=== PATIENT | female | born 1935 | race Asian ===

== ENCOUNTER 2018-06-05 11:47 | Inpatient (IN) | payer MEDICARE ==
[2018-06-05] MEDS ORDERED: NACL 0.9% 1000 ML 1,000 ML IV ONE (12:21)
[2018-06-05] MEDS ORDERED: PEPCID IV ONE (12:21)
[2018-06-05] MEDS ORDERED: ZOFRAN IV ONE (12:21)
--- NOTE | 2018-06-05 12:21 | Emergency Department Report ---
Blank Doc - Documentation Documentation: Patient is a 82-year-old black female who is being brought in by daughter because of several episodes of nausea vomiting and epigastric discomfort. Patient states she would not consider when she has to be pain. Patient states her last thing she ate was [facility] a [facility] she had a salad and orange. Patient states she's been having some nausea since. She denies any diarrhea fever chills chest pain cough cold congestion at this time. On focused physical exam the patient has no abdominal pain at this time. Patient is tachycardic. Patient removed to a treatment room for IV fluids as well as Zofran and Pepcid. After studies will be checked checked as well as a x-ray of the abdomen.
[2018-06-05 12:38] LABS: Bacteria,Urine 1+ /HPF (Negative); Bilirubin,Urine NEG (Negative); Blood,Urine SM (Negative); Color,Urine Yellow (Yellow); Mucus,Urine FEW /HPF; Urobilinogen,Urine < 2.0 mg/dL (<2.0)
[2018-06-05 12:46] LABS: Basophils # (Auto) 0.1 K/mm3 (0.0-0.1); Basophils % (Auto) 0.6 % (0.0-1.8); Eosinophils % (Auto) 0.1 % (0.0-4.3); Hematocrit 47.5 % (30.3-42.9); Hemoglobin 15.7 gm/dl (10.1-14.3); Lymphocytes % (Auto) 9.3 % (13.4-35.0); Mean Corpuscular HGB Conc 33 % (30-34); Mean Corpuscular Hemoglobin 29 pg (28-32); Mean Corpuscular Volume 88 fl (79-97); Monocytes # (Auto) 0.5 K/mm3 (0.0-0.8); Platelet Count 318 K/mm3 (140-440); Red Blood Count 5.42 M/mm3 (3.65-5.03); Red Cell Distribution Width 14.2 % (13.2-15.2)
[2018-06-05 13:03] LABS: Alanine Aminotransferase 11 units/L (7-56); Albumin 4.4 g/dL (3.9-5); BUN/Creatinine Ratio 18; Blood Urea Nitrogen 14 mg/dL (7-17); Calcium 9.8 mg/dL (8.4-10.2); Hemolysis Index 27; Lipase 19 units/L (13-60)
--- NOTE | 2018-06-05 13:47 | XRay Report ---
ABDOMINAL SERIES: History: Nausea and vomiting, epigastric pain. No comparison. Multiple dilated loops of small bowel with air-fluid levels are identified in the upper abdomen. No evidence for free air or pathologic calcifications. There is a normal gas and stool in the colon. Multiple surgical clips are noted in the pelvis, correlate with history. Single view of the chest demonstrates mild atelectatic changes at the right lung base. Otherwise, the lungs are clear. Normal heart size. IMPRESSION: Findings consistent with a partial small bowel obstruction.
[2018-06-05] MEDS ORDERED: NACL 0.9% 100 ML ONE (16:04)
--- NOTE | 2018-06-05 17:11 | Emergency Department Report ---
Vomiting/Diarrhea <CUAUHTEMOC LOPEZ - Last Filed: 06/05/18 20:04> - HPI Duration: 3 Days Severity: moderate Nausea/Vomiting Severity: Moderate Diarrhea Severity: Mild Pain Severity: None Symptoms: Yes Able to Tolerate Fluids, No Watery Diarrhea, No Bloody diarrhea, No Fever, No Recent Unusual Foods, No Recent Untreated Water, No Recent use of Antibiotics, No Family w/ Similar Symptoms, No Contacts w/ Similar Symptoms, No Rash, No Hematuria, No Recent URI Symptoms Other History: This is a 82-year-old -[place] female who presents with nausea and vomiting for 3 days. Past medical history of hypertension and ileostomy. Patient's daughter is at bed side and states surgeon informed family patient may have occasional diarrhea, nausea or vomiting, and bowel obstruction due to scarring from surgery. Patient has frequent nausea and vomiting with diarrhea. Patient denies pain and states diarrhea has resolved. Patient states she is afraid to eat anything over the past 2 days because she did not want to cause vomiting. They are also concerned of possible urinary tract infection. Patient denies abdominal pain, chest pain, fever, chills, cough, and congestion. <BYRON GOMEZ - Last Filed: 06/07/18 07:48> - HPI Chief Complaint: Nausea/Vomiting/Diarrhea Stated Complaint: VOMIT/DEHYRATED Time Seen by Provider: 06/05/18 12:15 ED Review of Systems ROS: Stated complaint: VOMIT/DEHYRATED Other details as noted in HPI <CUAUHTEMOC LOPEZ - Last Filed: 06/05/18 20:04> ROS: Stated complaint: VOMIT/DEHYRATED Other details as noted in HPI Constitutional: denies: chills, fever Respiratory: denies: cough, shortness of breath, wheezing Cardiovascular: denies: chest pain, palpitations Gastrointestinal: nausea, vomiting, diarrhea. denies: abdominal pain Neurological: denies: headache, weakness, paresthesias Psychiatric: denies: anxiety, depression <BYRON GOMEZ - Last Filed: 06/07/18 07:48> ED Past Medical Hx <CUAUHTEMOC LOPEZ - Last Filed: 06/05/18 20:04> - Past Medical History Hx Hypertension: Yes Hx of Cancer: Yes - Surgical History Past Surgical History?: Yes <BYRON GOMEZ - Last Filed: 06/07/18 07:48> - Medications Home Medications: Home Medications Medication Instructions Recorded Confirmed Last Taken Type Lisinopril [Prinivil] 5 mg PO DAILY PRN 06/05/18 06/05/18 Unknown History Mirtazapine 7.5 mg PO ONCE 06/06/18 06/06/18 Unknown History Promethazine [Phenergan TAB] 25 mg PO Q6HR PRN 06/06/18 06/06/18 06/04/18 10:00 History Tramadol HCl [Ultram] 50 mg PO ONCE PRN 06/06/18 06/06/18 Unknown History Vomiting Diarrhea Exam - Exam General: Vital signs noted. No distress. Alert and acting appropriately. Neurologic: Alert and oriented, no deficits. Musculoskeletal: Unremarkable. <JESSICAVALERIE' Tricia - Last Filed: 06/05/18 20:04> - Exam General: Vital signs noted. No distress. Alert and acting appropriately. HEENT: Yes Moist Mucous Membranes, No Pharyngeal Erythema, No Pharyngeal Exudates, No Rhinorrhea, No Conjuctival Injection, No Frontal Tenderness, No Maxillary Tenderness Neck: No Adenopathy, No Rigidity Lungs: Yes Clear Lung Sounds, Yes Good Air Exchange, No Wheezes, No Stridor, No Cough, No Nasal Flaring, No Retractions, No Use of Accessory Muscles Heart exam: Regular: Yes, Murmur: No, Tachycardia: No Abdomen: Tenderness: No, Peritoneal Signs: No, Distention: No, Hyperactive Bowel sounds: No Skin exam: Rash: No, Edema: No, Normal turgor: Yes Neurologic: Alert and oriented, no deficits. Musculoskeletal: Unremarkable. <BYRON GOMEZ - Last Filed: 06/07/18 07:48> ED Course Vital Signs 06/05/18 06/05/18 06/05/18 11:58 12:46 15:43 Temperature 99.9 F H Pulse Rate 122 H 123 H Respiratory 16 18 Rate Blood Pressure 135/87 136/87 O2 Sat by Pulse 96 99 96 Oximetry <LULULindyCUAUHTEMOC - Last Filed: 06/05/18 20:04> Vital Signs 06/05/18 06/05/18 06/05/18 11:58 12:46 15:43 Temperature 99.9 F H Pulse Rate 122 H 123 H Respiratory 16 18 Rate Blood Pressure 135/87 136/87 O2 Sat by Pulse 96 99 96 Oximetry <BYRON GOMEZ - Last Filed: 06/07/18 07:48> ED Medical Decision Making - Lab Data Result diagrams: 06/05/18 12:26 06/05/18 12:31 - Radiology Data FINAL REPORT EXAM: CT ABDOMEN PELVIS WO/W CON HISTORY: n/v, partial SBO on xray TECHNIQUE: Following oral administration of GI contrast axial helical imaging was performed through the abdomen and pelvis with sagittal and coronal reformatted images obtained. Comparison: None FINDINGS: There is pulmonary consolidation in both lung bases with volume loss. Probable atelectasis. The liver, spleen, pancreas and adrenal glands are unremarkable in appearance. There are hypodensities in both kidneys. Probable cyst. There is no evidence of hydronephrosis. A small amount of contrast is demonstrated in the kidneys bilaterally. There is marked distention of the stomach and [id number] distention of the proximal small bowel (4.9 centimeters) with air-fluid levels. There is a transition in the caliber of the small bowel in the region of the proximal ileum. The caliber of the small bowel distal to the transition measures approximately 1.4 centimeters. The colon is normal caliber to decompressed and contains stool. There is an enterostomy in the right anterior pelvic wall. There is a fluid collection in the subcutaneous fat in the region the enterostomy. There is a small amount of free fluid in the abdomen. There is no evidence of pneumoperitoneum. There is no definite evidence of bowel wall thickening at this time. Surgical clips are demonstrated in the pelvic sidewall bilaterally with the appearance of a bowel anastomosis in the right pelvis. The abdominal aorta is normal caliber. The urinary bladder is decompressed. The uterus is absent. The bony structures are notable for spondylitic change of the lumbar spine. IMPRESSION: 1. Evidence of high-grade small bowel obstruction in the region of the proximal ileum. 2. Small amount of free fluid in the abdomen. 3. Enterostomy right anterior pelvic wall with a fluid collection in the subcutaneous fat in the region the enterostomy. 4. Postsurgical changes in the pelvis with bowel anastomosis in the right pelvis. 5. Status post hysterectomy. 6. Spondylitic change lumbar spine. The finding of high-grade small bowel obstruction was discussed with MARIBEL Lopez at 7:55 p.m. June 05, 2018. Transcribed By: ED Dictated By: JI HULL MD Electronically Authenticated By: JI HULL MD Signed Date/Time: 06/05/181958 DD/ 58 TD/TT: 06/05/181958 <CUAUHTEMOC LOPEZ - Last Filed: 06/05/18 20:04> - Lab Data Result diagrams: 06/06/18 04:31 06/06/18 04:31 Lab Results 06/05/18 06/05/18 06/05/18 Range/Units 12:26 12:27 12:31 WBC 10.5 (4.5-11.0) K/mm3 RBC 5.42 H (3.65-5.03) M/mm3 Hgb 15.7 H (10.1-14.3) gm/dl Hct 47.5 H (30.3-42.9) % MCV 88 (79-97) fl MCH 29 (28-32) pg MCHC 33 (30-34) % RDW 14.2 (13.2-15.2) % Plt Count 318 (140-440) K/mm3 Lymph % (Auto) 9.3 L (13.4-35.0) % [place] % (Auto) 5.0 (0.0-7.3) % Eos % (Auto) 0.1 (0.0-4.3) % Baso % (Auto) 0.6 (0.0-1.8) % Lymph # 1.0 L (1.2-5.4) K/mm3 [place] # 0.5 (0.0-0.8) K/mm3 Eos # 0.0 (0.0-0.4) K/mm3 Baso # 0.1 (0.0-0.1) K/mm3 Seg Neutrophils % 85.0 H (40.0-70.0) % Seg Neutrophils # 8.9 H (1.8-7.7) K/mm3 Sodium (137-145) mmol/L Potassium (3.6-5.0) mmol/L Chloride (98-107) mmol/L Carbon Dioxide (22-30) mmol/L Anion Gap mmol/L BUN (7-17) mg/dL Creatinine (0.7-1.2) mg/dL Estimated GFR ml/min BUN/Creatinine Ratio % Glucose (65-100) mg/dL Calcium (8.4-10.2) mg/dL Total Bilirubin (0.1-1.2) mg/dL AST (5-40) units/L ALT (7-56) units/L Alkaline Phosphatase (35-129) units/L Troponin T < 0.010 (0.00-0.029) ng/mL Total Protein (6.3-8.2) g/dL Albumin (3.9-5) g/dL Albumin/Globulin Ratio % Lipase (13-60) units/L Urine Color Yellow (Yellow) Urine Turbidity Slightly-cloudy (Clear) Urine pH 7.0 (5.0-7.0) Ur Specific [place] 1.014 (1.003-1.030) Urine Protein 100 mg/dl (Negative) mg/dL Urine Glucose (UA) Neg (Negative) mg/dL Urine Ketones Tr (Negative) mg/dL Urine Blood Sm (Negative) Urine Nitrite Pos (Negative) Urine Bilirubin Neg (Negative) Urine Urobilinogen < 2.0 (<2.0) mg/dL Ur Leukocyte Esterase Tr (Negative) Urine WBC (Auto) 12.0 H (0.0-6.0) /HPF Urine RBC (Auto) 9.0 (0.0-6.0) /HPF Urine Bacteria (Auto) 1+ (Negative) /HPF Urine Mucus Few /HPF 06/05/18 Range/Units 12:31 WBC (4.5-11.0) K/mm3 RBC (3.65-5.03) M/mm3 Hgb (10.1-14.3) gm/dl Hct (30.3-42.9) % MCV (79-97) fl MCH (28-32) pg MCHC (30-34) % RDW (13.2-15.2) % Plt Count (140-440) K/mm3 Lymph % (Auto) (13.4-35.0) % [place] % (Auto) (0.0-7.3) % Eos % (Auto) (0.0-4.3) % Baso % (Auto) (0.0-1.8) % Lymph # (1.2-5.4) K/mm3 [place] # (0.0-0.8) K/mm3 Eos # (0.0-0.4) K/mm3 Baso # (0.0-0.1) K/mm3 Seg Neutrophils % (40.0-70.0) % Seg Neutrophils # (1.8-7.7) K/mm3 Sodium 136 L (137-145) mmol/L Potassium 4.3 (3.6-5.0) mmol/L Chloride 94.4 L (98-107) mmol/L Carbon Dioxide 25 (22-30) mmol/L Anion Gap 21 mmol/L BUN 14 (7-17) mg/dL Creatinine 0.8 (0.7-1.2) mg/dL Estimated GFR > 60 ml/min BUN/Creatinine Ratio 18 % Glucose 136 H (65-100) mg/dL Calcium 9.8 (8.4-10.2) mg/dL Total Bilirubin 1.50 H (0.1-1.2) mg/dL AST 23 (5-40) units/L ALT 11 (7-56) units/L Alkaline Phosphatase 62 (35-129) units/L Troponin T (0.00-0.029) ng/mL Total Protein 7.9 (6.3-8.2) g/dL Albumin 4.4 (3.9-5) g/dL Albumin/Globulin Ratio 1.3 % Lipase 19 (13-60) units/L Urine Color (Yellow) Urine Turbidity (Clear) Urine pH (5.0-7.0) Ur Specific [place] (1.003-1.030) Urine Protein (Negative) mg/dL Urine Glucose (UA) (Negative) mg/dL Urine Ketones (Negative) mg/dL Urine Blood (Negative) Urine Nitrite (Negative) Urine Bilirubin (Negative) Urine Urobilinogen (<2.0) mg/dL Ur Leukocyte Esterase (Negative) Urine WBC (Auto) (0.0-6.0) /HPF Urine RBC (Auto) (0.0-6.0) /HPF Urine Bacteria (Auto) (Negative) /HPF Urine Mucus /HPF - EKG Data Rate: tachycardia - Radiology Data Radiology results: report reviewed, image reviewed ABDOMINAL SERIES: History: Nausea and vomiting, epigastric pain. No comparison. Multiple dilated loops of small bowel with air-fluid levels are identified in the upper abdomen. No evidence for free air or pathologic calcifications. There is a normal gas and stool in the colon. Multiple surgical clips are noted in the pelvis, correlate with history. Single view of the chest demonstrates mild atelectatic changes at the right lung base. Otherwise, the lungs are clear. Normal heart size. IMPRESSION: Findings consistent with a partial small bowel obstruction. - Medical Decision Making Patient was examined by me and in the emergency room. Patient is in no acute distress and nontoxic appearing. Obtained labs, EKG, and x-ray of abdomen and chest. X-ray dictated by radiologist report reviewed by myself. Findings consistent with a partial small bowel obstruction. Ordered CT abdomen with contrast, pending. Patient tolerated oral contrast as by mouth trial while in the emergency room. Informed of nausea and vomiting while on CT table. Chart signed over to Sangeeta Brown <BYRON GOMEZ - Last Filed: 06/07/18 07:48> Critical care attestation.: If time is entered above; I have spent that time in minutes in the direct care of this critically ill patient, excluding procedure time. <CUAUHTEMOC LOPEZ - Last Filed: 06/05/18 20:04> Critical care attestation.: If time is entered above; I have spent that time in minutes in the direct care of this critically ill patient, excluding procedure time. <BYRON GOMEZ - Last Filed: 06/07/18 07:48> ED Disposition <CUAUHTEMOC LOPEZ - Last Filed: 06/05/18 20:04> Is pt being admited?: Yes <BYRON GOMEZ - Last Filed: 06/07/18 07:48> Clinical Impression: Small bowel obstruction Disposition: OP ADMIT IP TO THIS HOSP Condition: Stable
--- NOTE | 2018-06-05 20:00 | Cat Scan Report ---
FINAL REPORT EXAM: CT ABDOMEN PELVIS WO/W CON HISTORY: n/v, partial SBO on xray TECHNIQUE: Following oral administration of GI contrast axial helical imaging was performed through the abdomen and pelvis with sagittal and coronal reformatted images obtained. Comparison: None FINDINGS: There is pulmonary consolidation in both lung bases with volume loss. Probable atelectasis. The liver, spleen, pancreas and adrenal glands are unremarkable in appearance. There are hypodensities in both kidneys. Probable cyst. There is no evidence of hydronephrosis. A small amount of contrast is demonstrated in the kidneys bilaterally. There is marked distention of the stomach and ujqsqqzq-sw-[id number] distention of the proximal small bowel (4.9 centimeters) with air-fluid levels. There is a transition in the caliber of the small bowel in the region of the proximal ileum. The caliber of the small bowel distal to the transition measures approximately 1.4 centimeters. The colon is normal caliber to decompressed and contains stool. There is an enterostomy in the right anterior pelvic wall. There is a fluid collection in the subcutaneous fat in the region the enterostomy. There is a small amount of free fluid in the abdomen. There is no evidence of pneumoperitoneum. There is no definite evidence of bowel wall thickening at this time. Surgical clips are demonstrated in the pelvic sidewall bilaterally with the appearance of a bowel anastomosis in the right pelvis. The abdominal aorta is normal caliber. The urinary bladder is decompressed. The uterus is absent. The bony structures are notable for spondylitic change of the lumbar spine. IMPRESSION: 1. Evidence of high-grade small bowel obstruction in the region of the proximal ileum. 2. Small amount of free fluid in the abdomen. 3. Enterostomy right anterior pelvic wall with a fluid collection in the subcutaneous fat in the region the enterostomy. 4. Postsurgical changes in the pelvis with bowel anastomosis in the right pelvis. 5. Status post hysterectomy. 6. Spondylitic change lumbar spine. The finding of high-grade small bowel obstruction was discussed with MARIBEL Leigh at 7:55 p.m. June 05, 2018.
[2018-06-05] MEDS ORDERED: NACL 0.9% 1000 ML 1,000 ML IV SCH (21:00)
[2018-06-05] MEDS ORDERED: ATIVAN IV ONE (21:19)
[2018-06-05] MEDS ORDERED: ZOFRAN IV PRN (23:19)
[2018-06-05] MEDS ORDERED: SODIUM CHLORIDE FLUSH SYRINGE 10 ML IV PRN (23:19)
--- NOTE | 2018-06-05 23:21 | History and Physical Report ---
History of Present Illness Date of examination: 06/05/18 History of present illness: 82-year-old woman with a history of hypertension, bladder cancer comes to the emergency room for nausea vomiting 3 days, unable to tolerate oral intake. Spoke with the daughters, the patient was recently admitted at [facility] for bowel obstruction. Review of systems difficult to obtain from patient, status post Ativan, sleepy The NG tube was attempted in the emergency room without success PAST MEDICAL HISTORY:hypertension, bladder cancer PAST SURGICAL HISTORY: Bladder surgery with enterostomy, hysterectomy SOCIAL HISTORY: No alcohol, tobacco, drugs FAMILY HISTORY: Hypertension Medications and Allergies Allergies Allergy/AdvReac Type Severity Reaction Status Date / Time No Known Allergies Allergy Unverified 06/05/18 12:05 Home Medications Medication Instructions Recorded Confirmed Last Taken Type Lisinopril [Prinivil] 5 mg PO DAILY 06/05/18 06/05/18 Unknown History Active Meds: Active Medications Sodium Chloride (Nacl 0.9% 1000 Ml) 1,000 mls @ 125 mls/hr IV DIRECT ERIC Exam - Physical Exam Narrative exam: Gen. appearance: Patient lying in bed, no apparent distress HEENT: Normocephalic, atraumatic, pupils equally round and reactive to light, extraocular movement intact, and no sclericterus,. No JVD or thyromegaly or nodule,neck supple, no carotid bruit ,mucous membranes moist, no exudate or erythema Heart: S1, S2, regular rate and rhythm Lungs: Clear bilaterally, breathing comfortable Abdomen: No bowel sounds, tender in mid - abdomen, +bag, no organomegaly Extremity:no edema cyanosis, clubbing Skin: no rash, dry, warm Neuro: Difficult to assess, lethargic but arousable - Constitutional Vitals: Temp Pulse Resp BP Pulse Ox 101.2 F H 107 H 18 150/80 96 06/05/18 21:04 06/05/18 20:08 06/05/18 12:46 06/05/18 20:08 06/05/18 20:08 Results - Labs CBC & Chem 7: 06/06/18 04:31 06/06/18 04:31 Labs: Abnormal lab results 06/05/18 06/05/18 06/05/18 Range/Units 12:26 12:27 12:31 RBC 5.42 H (3.65-5.03) M/mm3 Hgb 15.7 H (10.1-14.3) gm/dl Hct 47.5 H (30.3-42.9) % Lymph % (Auto) 9.3 L (13.4-35.0) % Lymph # 1.0 L (1.2-5.4) K/mm3 Seg Neutrophils % 85.0 H (40.0-70.0) % Seg Neutrophils # 8.9 H (1.8-7.7) K/mm3 Sodium 136 L (137-145) mmol/L Chloride 94.4 L (98-107) mmol/L Glucose 136 H (65-100) mg/dL Lactic Acid (0.7-2.0) mmol/L Total Bilirubin 1.50 H (0.1-1.2) mg/dL Urine WBC (Auto) 12.0 H (0.0-6.0) /HPF 06/05/18 Range/Units 20:54 RBC (3.65-5.03) M/mm3 Hgb (10.1-14.3) gm/dl Hct (30.3-42.9) % Lymph % (Auto) (13.4-35.0) % Lymph # (1.2-5.4) K/mm3 Seg Neutrophils % (40.0-70.0) % Seg Neutrophils # (1.8-7.7) K/mm3 Sodium (137-145) mmol/L Chloride (98-107) mmol/L Glucose (65-100) mg/dL Lactic Acid 2.30 H* (0.7-2.0) mmol/L Total Bilirubin (0.1-1.2) mg/dL Urine WBC (Auto) (0.0-6.0) /HPF - Imaging and Cardiology Chest x-ray: report reviewed Abdominal x-ray: report reviewed CT scan - abdomen: report reviewed CT scan - pelvis: report reviewed Assessment and Plan Assessment High-grade small bowel obstruction SIRS UTI Hypertension History of bladder cancer Plan Admit to medicine Start IV fluids, bowel rest, family refuses NG tube Start IV zosyn, vancomycin Consult surgery, IV hydralazine for blood pressure control Obtain medical records from [facility] DVT prophalaxis
[2018-06-05] MEDS ORDERED: NACL 0.45% 1000 ML 1,000 ML IV SCH (23:45)
[2018-06-06] MEDS: ZOSYN/NS 3.375GM/50ML 3.375 GM/50 ML BAG IV SCH ×4 (00:10→21:40)
[2018-06-06] MEDS ORDERED: VANCOMYCIN/NS 1 GM/250 ML 1 GM/250 ML BAG IV SCH (03:18)
[2018-06-06 05:06] LABS: Basophils % (Auto) 0.2 % (0.0-1.8); Eosinophils % (Auto) 0.1 % (0.0-4.3); Hematocrit 44.3 % (30.3-42.9); Hemoglobin 14.9 gm/dl (10.1-14.3); Lymphocytes % (Auto) 18.3 % (13.4-35.0); Mean Corpuscular HGB Conc 34 % (30-34); Mean Corpuscular Hemoglobin 29 pg (28-32); Mean Corpuscular Volume 87 fl (79-97); Monocytes # (Auto) 0.5 K/mm3 (0.0-0.8); Monocytes % (Auto) 9.1 % (0.0-7.3); Platelet Count 306 K/mm3 (140-440); Red Blood Count 5.12 M/mm3 (3.65-5.03); Red Cell Distribution Width 14.2 % (13.2-15.2)
[2018-06-06 05:21] LABS: BUN/Creatinine Ratio 23; Blood Urea Nitrogen 16 mg/dL (7-17); Calcium 8.7 mg/dL (8.4-10.2); Hemolysis Index 6
[2018-06-06] MEDS ORDERED: LOVENOX SUB-Q SCH (10:00)
--- NOTE | 2018-06-06 10:32 | XRay Report ---
ABDOMINAL SERIES: History: Obstruction. Oral contrast from a recent CT has advanced into the colon and rectum. Multiple dilated loops of small bowel with air fluid levels are essentially unchanged. No evidence for free air. Single view of the chest remains unremarkable. IMPRESSION: No significant change in the dilated small bowel however oral contrast from recent CT has advanced into the colon.
[2018-06-06] MEDS: LOVENOX SUB-Q SCH (10:56)
[2018-06-06] MEDS: SODIUM CHLORIDE FLUSH SYRINGE 10 ML IV SCH ×2 (10:57→22:19)
--- NOTE | 2018-06-06 11:45 | Consultation ---
History of Present Illness Consult date: 06/06/18 Chief complaint: abdominal pain, n/v - History of present illness History of present illness: 82 yo F with hx of bladder ca s/p cystectomy with ileal conduit presents to ER with c/o abdominal pain, nausea, vomiting x2 days. The patient states her abdominal pain is periumbilical and does not radiate. It is mild at this time and has improved significantly since yesterday. She had bilious emesis which has subsided now. She had a BM yesterday and per nursing had another BM today which was solid. No f/c, cp, sob. The patient has had many episodes like this since her bladder surgery and has been managed conservatively per her daughter. She has been seen at [place] and hospitalized at [facility] in the past for small bowel obstruction which has resolved without surgery. The patient's daughter states that the patient often has to take laxatives to help keep her regular and to prevent "back up of stool". This episode is the same as the prior episodes. An NGT was attempted in ER but was not successfully placed despite three attempts per notes. Past History Past Medical History: hypertension, other (bladder ca) Past Surgical History: Other (cystectomy and creation of ileal conduit) Social history: no significant social history Family history: no significant family history Medications and Allergies Allergies Allergy/AdvReac Type Severity Reaction Status Date / Time No Known Allergies Allergy Unverified 06/05/18 12:05 Home Medications Medication Instructions Recorded Confirmed Last Taken Type Lisinopril [Prinivil] 5 mg PO DAILY 06/05/18 06/05/18 Unknown History Active Meds: Active Medications Bisacodyl (Dulcolax) 10 mg NM QDAY [facility] Enoxaparin Sodium (Lovenox) 40 mg SUB-Q QDAY@1000 ERIC Last Admin: 06/06/18 10:56 Dose: 40 mg Sodium Chloride (Nacl 0.45% 1000 Ml) 1,000 mls @ 75 mls/hr IV DIRECT [facility] Last Admin: 06/06/18 01:15 Dose: 75 mls/hr Piperacillin Sod/Tazobactam Sod (Zosyn/Ns 3.375gm/50ml) 3.375 gm in 50 mls @ 100 mls/hr IV Q8HR ERIC; Protocol Last Admin: 09/20/18 05:54 Dose: 100 mls/hr Ondansetron HCl (Zofran) 4 mg IV Q4H PRN PRN Reason: Nausea And Vomiting Last Admin: 06/06/18 01:14 Dose: 4 mg Sodium Chloride (Sodium Chloride Flush Syringe 10 Ml) 10 ml IV BID ERIC Last Admin: 06/06/18 10:57 Dose: 10 ml Sodium Chloride (Sodium Chloride Flush Syringe 10 Ml) 10 ml IV PRN PRN PRN Reason: LINE FLUSH Review of Systems All systems: negative (10 pt ROS performed and negative except for that listed in HPI) Exam Vital Signs Temp Pulse Resp BP Pulse Ox 99.9 F H 122 H 16 135/87 96 06/05/18 11:58 06/05/18 11:58 06/05/18 11:58 06/05/18 11:58 06/05/18 11:58 Narrative exam: Gen; AAOx3. NAD ENT: no scleral icterus or conjunctival pallor CV: S1, S2+ Resp: even and unlabored Abd: soft, mildly distended, NT. no r/r/g. Ileal conduit R mid abdomen with clear yellow urine in bag. Mucosa pink Ext: no c/c/e Results - Labs 06/06/18 04:31 06/06/18 04:31 Abnormal lab results 06/05/18 06/05/18 06/05/18 Range/Units 12:26 12:27 12:31 RBC 5.42 H (3.65-5.03) M/mm3 Hgb 15.7 H (10.1-14.3) gm/dl Hct 47.5 H (30.3-42.9) % Lymph % (Auto) 9.3 L (13.4-35.0) % [place] % (Auto) (0.0-7.3) % Lymph # 1.0 L (1.2-5.4) K/mm3 Seg Neutrophils % 85.0 H (40.0-70.0) % Seg Neutrophils # 8.9 H (1.8-7.7) K/mm3 Sodium 136 L (137-145) mmol/L Chloride 94.4 L (98-107) mmol/L Glucose 136 H (65-100) mg/dL Lactic Acid (0.7-2.0) mmol/L Total Bilirubin 1.50 H (0.1-1.2) mg/dL Urine WBC (Auto) 12.0 H (0.0-6.0) /HPF 06/05/18 06/05/18 06/06/18 Range/Units 20:54 22:38 04:31 RBC 5.12 H (3.65-5.03) M/mm3 Hgb 14.9 H (10.1-14.3) gm/dl Hct 44.3 H (30.3-42.9) % Lymph % (Auto) (13.4-35.0) % [place] % (Auto) 9.1 H (0.0-7.3) % Lymph # 1.0 L (1.2-5.4) K/mm3 Seg Neutrophils % 72.3 H (40.0-70.0) % Seg Neutrophils # (1.8-7.7) K/mm3 Sodium (137-145) mmol/L Chloride (98-107) mmol/L Glucose (65-100) mg/dL Lactic Acid 2.30 H* 2.30 H* (0.7-2.0) mmol/L Total Bilirubin (0.1-1.2) mg/dL Urine WBC (Auto) (0.0-6.0) /HPF 06/06/18 Range/Units 04:31 RBC (3.65-5.03) M/mm3 Hgb (10.1-14.3) gm/dl Hct (30.3-42.9) % Lymph % (Auto) (13.4-35.0) % [place] % (Auto) (0.0-7.3) % Lymph # (1.2-5.4) K/mm3 Seg Neutrophils % (40.0-70.0) % Seg Neutrophils # (1.8-7.7) K/mm3 Sodium (137-145) mmol/L Chloride (98-107) mmol/L Glucose 146 H (65-100) mg/dL Lactic Acid (0.7-2.0) mmol/L Total Bilirubin (0.1-1.2) mg/dL Urine WBC (Auto) (0.0-6.0) /HPF Diabetes panel 06/05/18 06/06/18 Range/Units 12:31 04:31 Sodium 136 L 140 (137-145) mmol/L Potassium 4.3 4.3 (3.6-5.0) mmol/L Chloride 94.4 L 102.2 (98-107) mmol/L Carbon Dioxide 25 26 (22-30) mmol/L BUN 14 16 (7-17) mg/dL Creatinine 0.8 0.7 (0.7-1.2) mg/dL Glucose 136 H 146 H (65-100) mg/dL Calcium 9.8 8.7 (8.4-10.2) mg/dL AST 23 (5-40) units/L ALT 11 (7-56) units/L Alkaline Phosphatase 62 (35-129) units/L Total Protein 7.9 (6.3-8.2) g/dL Albumin 4.4 (3.9-5) g/dL Calcium panel 06/05/18 06/06/18 Range/Units 12:31 04:31 Calcium 9.8 8.7 (8.4-10.2) mg/dL Albumin 4.4 (3.9-5) g/dL Pituitary panel 06/05/18 06/06/18 Range/Units 12:31 04:31 Sodium 136 L 140 (137-145) mmol/L Potassium 4.3 4.3 (3.6-5.0) mmol/L Chloride 94.4 L 102.2 (98-107) mmol/L Carbon Dioxide 25 26 (22-30) mmol/L BUN 14 16 (7-17) mg/dL Creatinine 0.8 0.7 (0.7-1.2) mg/dL Glucose 136 H 146 H (65-100) mg/dL Calcium 9.8 8.7 (8.4-10.2) mg/dL Adrenal panel 06/05/18 06/06/18 Range/Units 12:31 04:31 Sodium 136 L 140 (137-145) mmol/L Potassium 4.3 4.3 (3.6-5.0) mmol/L Chloride 94.4 L 102.2 (98-107) mmol/L Carbon Dioxide 25 26 (22-30) mmol/L BUN 14 16 (7-17) mg/dL Creatinine 0.8 0.7 (0.7-1.2) mg/dL Glucose 136 H 146 H (65-100) mg/dL Calcium 9.8 8.7 (8.4-10.2) mg/dL Total Bilirubin 1.50 H (0.1-1.2) mg/dL AST 23 (5-40) units/L ALT 11 (7-56) units/L Alkaline Phosphatase 62 (35-129) units/L Total Protein 7.9 (6.3-8.2) g/dL Albumin 4.4 (3.9-5) g/dL - Imaging CT scan - abdomen: report reviewed, image reviewed CT scan - pelvis: report reviewed, image reviewed Assessment and Plan 82 yo F with SBO, dehydration, UTI Plan: 1. NGT could not be placed by ED. Patient and family now refusing placement of NGT despite recommendation. I explained to them that NGT may help resolve SBO and they understand. 2. NPO 3. IVF 4. strict I/Os - patient has ileal conduit 5. IV abx for UTI 6. monitor fever 7. urine culture 8. OOB to chair 9. DVT ppx 10. prn nausea control 11. I discussed the case with patient's daughter who is at the bedside. She states that the patient has had many small bowel obstructions after having her cystectomy and ileal conduit. She has been treated at [place] and [place]. She has been managed conservatively every time and without NGT and has resolved with bowel rest and IVF. They would like to continue management in this way. She expressed that surgery should only be considered if it is a life saving measure, otherwise they request no surgery 12.will obtain obs series Thank you for this consultation, please call with questions or concerns.
[2018-06-06] MEDS: DULCOLAX PR SCH (13:13)
[2018-06-06] MEDS: D5NS 1,000 ML IV SCH ×2 (14:24→21:39)
--- NOTE | 2018-06-06 15:30 | Progress Note ---
Assessment and Plan Assessment and plan: 82-year-old woman with a history of hypertension, bladder cancer comes to the emergency room for nausea vomiting 3 days, unable to tolerate oral intake. Spoke with the daughters, the patient was recently admitted at [facility] for bowel obstruction. Review of systems difficult to obtain from patient, status post Ativan, sleepy The NG tube was attempted in the emergency room without success PAST MEDICAL HISTORY:hypertension, bladder cancer PAST SURGICAL HISTORY: Bladder surgery with enterostomy, hysterectomy High-grade small bowel obstruction -Continue bowel rest, patient and her children have declined NG tube. Apparently the patient had bowel obstruction multiple times and usually improves with bowel rest and laxatives. Case discussed with general surgery Sepsis/UTI Patient received antibiotics, but never received urine culture. Continue antibiotics, we de-escalate them if patient is improving Pre-hypertension, blood pressure most likely elevated due to acute illness, continued to give pushes of hydralazine as needed History Interval history: Abdominal pain, distention is improving. Patient is yet to have a bowel movement No fevers no chills, no further vomiting, No chest pain, no shortness of breath Hospitalist Physical - Physical exam Narrative exam: General.: Appears well, no distress, nontoxic HEENT: Moist mucous membranes, extraocular muscles intact, no lymphadenopathy Neck: supple Cardiac: S1-S2 heard Lungs: clear to auscultation bilaterally Abdomen: soft , distended, nontender, ileostomy bag noted Extremities: no edema clubbing or cyanosis Skin: no rash or lesions Neurologic: no gross focal deficits Psych: appropriate behavior, appropriate mood, corporative, judgment intact - Constitutional Vitals: Temp Pulse Resp BP Pulse Ox 99.7 F H 99 H 18 125/75 95 06/06/18 12:22 06/06/18 08:25 06/06/18 12:22 06/06/18 12:23 06/06/18 08:37 Results - Labs CBC & Chem 7: 06/06/18 04:31 06/06/18 04:31 Labs: Laboratory Last Values WBC 5.2 K/mm3 (4.5-11.0) 06/06/18 04:31 RBC 5.12 M/mm3 (3.65-5.03) H 06/06/18 04:31 Hgb 14.9 gm/dl (10.1-14.3) H 06/06/18 04:31 Hct 44.3 % (30.3-42.9) H 06/06/18 04:31 MCV 87 fl (79-97) 06/06/18 04:31 MCH 29 pg (28-32) 06/06/18 04:31 MCHC 34 % (30-34) 06/06/18 04:31 RDW 14.2 % (13.2-15.2) 06/06/18 04:31 Plt Count 306 K/mm3 (140-440) 06/06/18 04:31 Lymph % (Auto) 18.3 % (13.4-35.0) 06/06/18 04:31 [place] % (Auto) 9.1 % (0.0-7.3) H 06/06/18 04:31 Eos % (Auto) 0.1 % (0.0-4.3) 06/06/18 04:31 Baso % (Auto) 0.2 % (0.0-1.8) 06/06/18 04:31 Lymph # 1.0 K/mm3 (1.2-5.4) L 06/06/18 04:31 [place] # 0.5 K/mm3 (0.0-0.8) 06/06/18 04:31 Eos # 0.0 K/mm3 (0.0-0.4) 06/06/18 04:31 Baso # 0.0 K/mm3 (0.0-0.1) 06/06/18 04:31 Seg Neutrophils % 72.3 % (40.0-70.0) H 06/06/18 04:31 Seg Neutrophils # 3.8 K/mm3 (1.8-7.7) 06/06/18 04:31 Sodium 140 mmol/L (137-145) 06/06/18 04:31 Potassium 4.3 mmol/L (3.6-5.0) 06/06/18 04:31 Chloride 102.2 mmol/L (98-107) 06/06/18 04:31 Carbon Dioxide 26 mmol/L (22-30) 06/06/18 04:31 Anion Gap 16 mmol/L 06/06/18 04:31 BUN 16 mg/dL (7-17) 06/06/18 04:31 Creatinine 0.7 mg/dL (0.7-1.2) 06/06/18 04:31 Estimated GFR > 60 ml/min 06/06/18 04:31 BUN/Creatinine Ratio 23 % 06/06/18 04:31 Glucose 146 mg/dL (65-100) H 06/06/18 04:31 Lactic Acid 1.90 mmol/L (0.7-2.0) 06/06/18 00:56 Calcium 8.7 mg/dL (8.4-10.2) 06/06/18 04:31 Total Bilirubin 1.50 mg/dL (0.1-1.2) H 06/05/18 12:31 AST 23 units/L (5-40) 06/05/18 12:31 ALT 11 units/L (7-56) 06/05/18 12:31 Alkaline Phosphatase 62 units/L (35-129) 06/05/18 12:31 Troponin T < 0.010 ng/mL (0.00-0.029) 06/05/18 12:31 Total Protein 7.9 g/dL (6.3-8.2) 06/05/18 12:31 Albumin 4.4 g/dL (3.9-5) 06/05/18 12:31 Albumin/Globulin Ratio 1.3 % 06/05/18 12:31 Lipase 19 units/L (13-60) 06/05/18 12:31 Urine Color Yellow (Yellow) 06/05/18 12:27 Urine Turbidity Slightly-cloudy (Clear) 06/05/18 12:27 Urine pH 7.0 (5.0-7.0) 06/05/18 12:27 Ur Specific [place] 1.014 (1.003-1.030) 06/05/18 12:27 Urine Protein 100 mg/dl mg/dL (Negative) 06/05/18 12:27 Urine Glucose (UA) Neg mg/dL (Negative) 06/05/18 12:27 Urine Ketones Tr mg/dL (Negative) 06/05/18 12:27 Urine Blood Sm (Negative) 06/05/18 12:27 Urine Nitrite Pos (Negative) 06/05/18 12:27 Urine Bilirubin Neg (Negative) 06/05/18 12:27 Urine Urobilinogen < 2.0 mg/dL (<2.0) 06/05/18 12:27 Ur Leukocyte Esterase Tr (Negative) 06/05/18 12:27 Urine WBC (Auto) 12.0 /HPF (0.0-6.0) H 06/05/18 12:27 Urine RBC (Auto) 9.0 /HPF (0.0-6.0) 06/05/18 12:27 Urine Bacteria (Auto) 1+ /HPF (Negative) 06/05/18 12:27 Urine Mucus Few /HPF 06/05/18 12:27
[2018-06-07] MEDS: ZOSYN/NS 3.375GM/50ML 3.375 GM/50 ML BAG IV SCH ×3 (06:19→22:08)
--- NOTE | 2018-06-07 08:07 | XRay Report ---
ABDOMINAL SERIES: History: Small bowel obstruction. There is oral contrast in the distal colon. Significant improvement in the small bowel dilatation is demonstrated since yesterday's exam. Small bowel loops are borderline in caliber on today's exam. Air fluid levels have decreased. No free air is appreciated. IMPRESSION: Significant improvement in the partial small bowel obstruction pattern.
[2018-06-07] MEDS: DULCOLAX PR SCH (10:17)
[2018-06-07] MEDS: LOVENOX SUB-Q SCH (10:17)
[2018-06-07] MEDS: SODIUM CHLORIDE FLUSH SYRINGE 10 ML IV SCH ×2 (10:22→22:09)
[2018-06-07] MEDS: COLACE PO SCH ×2 (10:23→22:08)
--- NOTE | 2018-06-07 10:54 | Progress Note ---
Assessment and Plan Assessment and plan: 82-year-old woman with a history of hypertension, bladder cancer comes to the emergency room for nausea vomiting 3 days, unable to tolerate oral intake. Spoke with the daughters, the patient was recently admitted at [facility] for bowel obstruction. Review of systems difficult to obtain from patient, status post Ativan, sleepy The NG tube was attempted in the emergency room without success PAST MEDICAL HISTORY:hypertension, bladder cancer PAST SURGICAL HISTORY: Bladder surgery with enterostomy, hysterectomy High-grade small bowel obstruction -Continue bowel rest, patient and her children have declined NG tube. Apparently the patient had bowel obstruction multiple times and usually improves with bowel rest and laxatives. Case discussed with general surgery Sepsis/UTI Patient received antibiotics, but never received urine culture. Continue antibiotics, we de-escalate them if patient is improving Pre-hypertension, blood pressure most likely elevated due to acute illness, continued to give pushes of hydralazine as needed History Interval history: Abdominal pain, distention is improving. Patient is yet to have a bowel movement No fevers no chills, no further vomiting, No chest pain, no shortness of breath Hospitalist Physical - Physical exam Narrative exam: General.: Appears well, no distress, nontoxic HEENT: Moist mucous membranes, extraocular muscles intact, no lymphadenopathy Neck: supple Cardiac: S1-S2 heard Lungs: clear to auscultation bilaterally Abdomen: soft , distended, nontender, ileostomy bag noted Extremities: no edema clubbing or cyanosis Skin: no rash or lesions Neurologic: no gross focal deficits Psych: appropriate behavior, appropriate mood, corporative, judgment intact - Constitutional Vitals: Temp Pulse Resp BP Pulse Ox 98.5 F 88 18 137/70 96 06/07/18 08:13 06/07/18 08:13 06/07/18 08:13 06/07/18 08:13 06/07/18 08:13 Results - Labs CBC & Chem 7: 06/06/18 04:31 06/06/18 04:31 Labs: Laboratory Last Values WBC 5.2 K/mm3 (4.5-11.0) 06/06/18 04:31 RBC 5.12 M/mm3 (3.65-5.03) H 06/06/18 04:31 Hgb 14.9 gm/dl (10.1-14.3) H 06/06/18 04:31 Hct 44.3 % (30.3-42.9) H 06/06/18 04:31 MCV 87 fl (79-97) 06/06/18 04:31 MCH 29 pg (28-32) 06/06/18 04:31 MCHC 34 % (30-34) 06/06/18 04:31 RDW 14.2 % (13.2-15.2) 06/06/18 04:31 Plt Count 306 K/mm3 (140-440) 06/06/18 04:31 Lymph % (Auto) 18.3 % (13.4-35.0) 06/06/18 04:31 [place] % (Auto) 9.1 % (0.0-7.3) H 06/06/18 04:31 Eos % (Auto) 0.1 % (0.0-4.3) 06/06/18 04:31 Baso % (Auto) 0.2 % (0.0-1.8) 06/06/18 04:31 Lymph # 1.0 K/mm3 (1.2-5.4) L 06/06/18 04:31 [place] # 0.5 K/mm3 (0.0-0.8) 06/06/18 04:31 Eos # 0.0 K/mm3 (0.0-0.4) 06/06/18 04:31 Baso # 0.0 K/mm3 (0.0-0.1) 06/06/18 04:31 Seg Neutrophils % 72.3 % (40.0-70.0) H 06/06/18 04:31 Seg Neutrophils # 3.8 K/mm3 (1.8-7.7) 06/06/18 04:31 Sodium 140 mmol/L (137-145) 06/06/18 04:31 Potassium 4.3 mmol/L (3.6-5.0) 06/06/18 04:31 Chloride 102.2 mmol/L (98-107) 06/06/18 04:31 Carbon Dioxide 26 mmol/L (22-30) 06/06/18 04:31 Anion Gap 16 mmol/L 06/06/18 04:31 BUN 16 mg/dL (7-17) 06/06/18 04:31 Creatinine 0.7 mg/dL (0.7-1.2) 06/06/18 04:31 Estimated GFR > 60 ml/min 06/06/18 04:31 BUN/Creatinine Ratio 23 % 06/06/18 04:31 Glucose 146 mg/dL (65-100) H 06/06/18 04:31 Lactic Acid 1.90 mmol/L (0.7-2.0) 06/06/18 00:56 Calcium 8.7 mg/dL (8.4-10.2) 06/06/18 04:31 Total Bilirubin 1.50 mg/dL (0.1-1.2) H 06/05/18 12:31 AST 23 units/L (5-40) 06/05/18 12:31 ALT 11 units/L (7-56) 06/05/18 12:31 Alkaline Phosphatase 62 units/L (35-129) 06/05/18 12:31 Troponin T < 0.010 ng/mL (0.00-0.029) 06/05/18 12:31 Total Protein 7.9 g/dL (6.3-8.2) 06/05/18 12:31 Albumin 4.4 g/dL (3.9-5) 06/05/18 12:31 Albumin/Globulin Ratio 1.3 % 06/05/18 12:31 Lipase 19 units/L (13-60) 06/05/18 12:31 Urine Color Yellow (Yellow) 06/05/18 12:27 Urine Turbidity Slightly-cloudy (Clear) 06/05/18 12:27 Urine pH 7.0 (5.0-7.0) 06/05/18 12:27 Ur Specific [place] 1.014 (1.003-1.030) 06/05/18 12:27 Urine Protein 100 mg/dl mg/dL (Negative) 06/05/18 12:27 Urine Glucose (UA) Neg mg/dL (Negative) 06/05/18 12:27 Urine Ketones Tr mg/dL (Negative) 06/05/18 12:27 Urine Blood Sm (Negative) 06/05/18 12:27 Urine Nitrite Pos (Negative) 06/05/18 12:27 Urine Bilirubin Neg (Negative) 06/05/18 12:27 Urine Urobilinogen < 2.0 mg/dL (<2.0) 06/05/18 12:27 Ur Leukocyte Esterase Tr (Negative) 06/05/18 12:27 Urine WBC (Auto) 12.0 /HPF (0.0-6.0) H 06/05/18 12:27 Urine RBC (Auto) 9.0 /HPF (0.0-6.0) 06/05/18 12:27 Urine Bacteria (Auto) 1+ /HPF (Negative) 06/05/18 12:27 Urine Mucus Few /HPF 06/05/18 12:27
--- NOTE | 2018-06-07 15:04 | Progress Note ---
Assessment and Plan 82 yo F with SBO, dehydration, UTI Plan: 1. obs series today much improved and patient is clinically improving - now having bowel function and benign abdominal exam 2. clear liquids started this am -> adv as tolerated to soft diet in am 3. decrease IVF 4. OOB to chair 5. DVT ppx 6. bowel regimen Anticipate discharge in am from surgery standpoint if patient tolerates soft diet. Discussed plan with patient's daughters in the room and with patient. Thank you for this consultation, please call with questions or concerns. Subjective Date of service: 06/07/18 Narrative: Pt seen and examined. Feeling better today. No abdominal pain, n/v. Had three formed BMs today and is passing flatus. Tolerating clear liquids. No f/c. Objective Vital Signs - 12hr 06/07/18 06/07/18 06/07/18 04:55 08:13 10:00 Temperature 98.5 F 98.5 F Pulse Rate 78 88 Respiratory 20 18 Rate Blood Pressure 100/67 137/70 Blood Pressure [Left] O2 Sat by Pulse 93 96 97 Oximetry 06/07/18 12:00 Temperature 98.5 F Pulse Rate 88 Respiratory 18 Rate Blood Pressure Blood Pressure 134/78 [Left] O2 Sat by Pulse 97 Oximetry - General physical appearance Narrative Exam: Gen: AAOx3. NAD CV: S1, S2+ resp: even and unlabored Abd: soft, ND, NT. ileal conduit with yellow urine in bag Ext: no c/c/e - Labs 06/06/18 04:31 06/06/18 04:31
--- NOTE | 2018-06-07 18:56 | Event Note ---
As per the daughter, patient had more than 4 bowel movements. She is improving Continue clear liquid diet as tolerated The patient and the patient's daughter have related that they're very upset. Per them, the refused NG tube in the emergency department. The patient and believes she was given Ativan to sedate her, and an NG tube was attempted against her wishes. She states that she's had some bloody spit up after it some believes she had trauma from the NG tube. -I have alerted the energy director, along with patient experience statement services representative to talk to the patient and investigate their complaints.-
[2018-06-07] MEDS: D5NS 1,000 ML IV SCH (20:31)
[2018-06-08] MEDS: ZOSYN/NS 3.375GM/50ML 3.375 GM/50 ML BAG IV SCH (06:05)
[2018-06-08] MEDS: D5NS 1,000 ML IV SCH (06:08)
[2018-06-08] MEDS: LOVENOX SUB-Q SCH (10:30)
--- NOTE | 2018-06-08 14:09 | Progress Note ---
Assessment and Plan 82 yo F with SBO, dehydration, UTI Plan: 1. obstruction resolved with conservative management, patient should continue soft diet on discharge 2. dc IVF 3. OOB to chair 4. DVT ppx 5. bowel regimen 6. I do not feel there is a need to perform stool studies or Cdiff studies for diarrhea. Patient had a large amount of liquid stool in small bowel and colon as a result of obstruction and I explained to her and the family that diarrhea will be expected at this time. OK to dc home from surgery standpoint. Patient has follow up appointment with her surgeon on Jun 12 Thank you for this consultation, please call with questions or concerns. Subjective Date of service: 06/08/18 Narrative: Pt seen and examined. No complaints. + multiple loose BMs and flatus. Patient states no foul smell to stool. No f/c. No n/v. Tolerated soft diet. Objective Vital Signs - 12hr 06/08/18 06/08/18 06/08/18 04:51 07:37 08:49 Temperature 98.1 F 98.4 F Pulse Rate 78 75 Respiratory 16 18 Rate Blood Pressure 141/78 Blood Pressure 132/73 [Left] O2 Sat by Pulse 99 97 97 Oximetry 06/08/18 12:04 Temperature 99.1 F Pulse Rate 82 Respiratory 16 Rate Blood Pressure Blood Pressure 145/75 [Left] O2 Sat by Pulse 97 Oximetry - General physical appearance Narrative Exam: Gen: AAOx3. NAD CV: S1, S2+ Resp: even and unlabored Abd: soft, NT, ND. Ileal conduit. Ext: no c/c/e - Labs 06/06/18 04:31 06/06/18 04:31
[2018-06-08 16:42] VITALS: BP 159/72
--- NOTE | 2018-06-08 17:05 | Discharge Summary ---
Providers - Providers Date of Admission: 06/05/18 23:19 Attending physician: BILLIE JACKSON MD 06/05/18 22:09 Consult to Physician [CONS] Urgent Comment: Consulting Provider: JUAREZ ESPITIA Physician Instructions: Reason For Exam: small bowel obstruction Primary care physician: YOLANDE CHAUDHARI MD Hospitalization Condition: Stable Disposition: DC-01 TO HOME OR SELFCARE Time spent for discharge: 33 minutes Core Measure Documentation - Palliative Care Palliative Care/ Comfort Measures: Not Applicable - Core Measures Any of the following diagnoses?: none Exam - Constitutional Vitals: Temp Pulse Resp BP Pulse Ox 98.6 F 74 19 159/72 97 06/08/18 16:25 06/08/18 16:25 06/08/18 16:25 06/08/18 16:25 06/08/18 12:04 General appearance: Present: no acute distress, well-nourished - EENT Eyes: Present: PERRL ENT: hearing intact, clear oral mucosa - Neck Neck: Present: supple, normal ROM - Respiratory Respiratory effort: normal Respiratory: bilateral: CTA - Cardiovascular Heart Sounds: Present: S1 & S2. Absent: rub, click - Extremities Extremities: pulses symmetrical, No edema Peripheral Pulses: within normal limits - Abdominal General gastrointestinal: Present: soft, non-tender, non-distended, normal bowel sounds Female genitourinary: Present: normal - Integumentary Integumentary: Present: clear, warm, dry - Musculoskeletal Musculoskeletal: gait normal, strength equal bilaterally - Psychiatric Psychiatric: appropriate mood/affect, intact judgment & insight - Neurologic Neurologic: CNII-XII intact, moves all extremities Plan Follow up with: PRIMARY CAREMD [Primary Care Provider] - 3-5 Days
== END 2018-06-08 15:45 | disposition home health service (06) | DRG 872 ==
LOC: ED 11:47 → 3B-SURG 23:19
PROVIDERS: ADMIT Internal Medicine; ATTEND Internal Medicine
DX: A41.9 Sepsis, unspecified organism (principal); K56.609 Unspecified intestinal obstruction, unspecified as to partial versus complete obstruction; N39.0 Urinary tract infection, site not specified; E86.0 Dehydration; I10 Essential (primary) hypertension; Z85.51 Personal history of malignant neoplasm of bladder; Z90.710 Acquired absence of both cervix and uterus; Z79.899 Other long term (current) drug therapy; Z82.49 Family history of ischemic heart disease and other diseases of the circulatory system
CPT/HCPCS: 36415; 74022; 74178; 80048; 80053; 81001; 82140; 83690; 84484; 85025; 93005; 93010; 96361; 96374; 96375; J1650; J2060; J2405; J2543; J3370; J7030; J7042; Q9967

== ENCOUNTER 2018-09-13 11:17 | Outpatient (CLI) | payer MEDICARE ==
--- NOTE | 2018-09-13 14:35 | Mammography Report ---
BONE DEXA:09/13/18 11:17:00 CLINICAL: Postmenopausal. No comparison. TECHNIQUE: Two site bone DEXA performed on an Hologic scanner. FINDINGS: The average BMD of the lumbar spine L3 and L4 is 1.012g/cm squared with a T-score of -1.8 and a Z-score of +1.4. The L1 and L2 bodies were excluded as outliers because of endplate sclerosis at L1-2. The average BMD of the left hip is 0.759g/cm squared with a T-score of -1.7 and a Z-score of -0.1. IMPRESSION: WHO classification: Osteopenia with increased fracture risk based on both spine and left hip measurements. RECOMMENDATION: Clinical correlation and routine screening. DEFINITIONS: BMD = Bone Mineral Density T-score = BMD related to mean peak bone mass of young adult (mean expressed in Standard Deviation) Z-score = Age matched BMD expressed in SD World Health Organization (WHO) Diagnostic Criteria Normal T-score > -1 SD Osteopenia T-score between -1 and -2.4 SD Osteoporosis T-score -2.5 SD or below NOTE: BMD is not the only risk factor for fracture. One should also consider factors such as the patient's age, risk of falling, previous osteoporotic fracture, family history of osteoporotic fractures, current smoker, and low body weight. Z-scores are not calculated if >80 years of age.
== END 2018-09-13 11:18 | disposition home or self-care (01) ==
LOC: SPVWC 11:17
PROVIDERS: ATTEND Family Medicine
DX: M85.88 Other specified disorders of bone density and structure, other site (principal); I10 Essential (primary) hypertension; Z78.0 Asymptomatic menopausal state
CPT/HCPCS: 77080